=== PATIENT | female | born 1975 | race Caucasian/White ===

== ENCOUNTER 2020-07-15 17:04 | Emergency (ER) | payer BC, SELFPAY ==
[2020-07-15 17:15] VITALS: BP 144/98; PULSE 87; RESP 18; TEMP 36.4; O2SAT 99
--- NOTE | 2020-07-15 17:21 | ED.EAR ---
HPI - Ear Problem General Chief complaint: Ear Stated complaint: ear pain Time Seen by Provider: 07/15/20 17:08 Source: patient Mode of arrival: ambulatory Limitations: no limitations History of Present Illness HPI Narrative: 44 y/o female. Presents to clinic today with acute complaints of RT ear pain and 'aching', worsening over past 1 week. Pt reports to have been seen per PCP, started Debrox gtts, and has had subtherapeutic relief. She notes worsening RT auditory discomforts. Some 'muffled hearing', without severe ear pain or hearing loss. No fever, chills, congestion. No additional acute c/o upon PE. Related Data Home Medications Medication Instructions Recorded Confirmed ergocalciferol (vitamin D2) 1 unit WEEKLY 07/15/20 07/15/20 penicillin V potassium 500 mg DAILY 07/15/20 07/15/20 sumatriptan succinate 100 mg PO DAILY PRN 07/15/20 07/15/20 tamoxifen 20 mg DAILY 07/15/20 07/15/20 venlafaxine 150 mg PO DAILY 07/15/20 07/15/20 Allergies Allergy/AdvReac Type Severity Reaction Status Date / Time ondansetron Allergy Unknown Headache Verified 07/15/20 17:07 fresh fruit and vegatables Allergy Mild Swelling Uncoded 07/30/06 15:17 Review of Systems Review of Systems: Narrative: CONSTITUTIONAL: Denies fever, chills, sweats. EYES: Denies visual changes, redness, discharge. ENT: Denies rhinorrhea, congestion, sore throat. Positive RT otalgia. CARDIOVASCULAR: Denies chest pain, palpitations, edema. RESPIRATORY: Denies dyspnea, wheezing, cough GASTROINTESTINAL: Denies abdominal pain, nausea, vomiting, diarrhea. GENITOURINARY: Denies dysuria, hematuria, abnormal discharge SKIN: Denies rash or itching. MUSCULOSKELETAL: Denies acute back pain, joint pain, or myalgia. NEUROLOGIC: Denies numbness, or focal weakness. PSYCHIATRIC: Denies anxiety or depression. All systems reviewed & are unremarkable except as noted in HPI and below PMFSH Social History Social History Gender identity (if verbalized by the patient): Female Exam Narrative: Exam Narrative: GENERAL: This is a well-nourished, well-developed patient, in no apparent distress. HEAD: normocephalic, atraumatic. EYES: PERRL. Sclera clear/white. Vision is grossly intact. EARS: Hearing grossly intact. Pinna is normal shape and contour. RT ear with mild erythema and swelling of canal, with tenderness to auricle and pinna with palpation and manipulation. Positive RT auditory canal erythema and mild cerumen accumulation. There appears to also be minimal discharge. Clear external auditory LT canal. LT TM pearly smith with good cone of light, no erythema or suppuration, unable to fully visualize RT due to cerumen but appears intact. NOSE: External nose normal with no obvious nasal discharge, nares without redness, no rhinorrhea. THROAT: Mucous membranes moist, posterior pharynx clear. NECK: Neck supple, non-tender without lymphadenopathy, masses or thyromegaly. CARDIOVASCULAR: Regular rate and rhythm without murmurs, gallops, or rubs. RESPIRATORY: Clear to auscultation. Breath sounds equal bilaterally. No wheezes, rales, or rhonchi. GASTROINTESTINAL: Abdomen soft, non-tender, nondistended. Bowel sounds are active. No hepato-splenomegaly, or palpable masses. No guarding. SKIN: warm, intact with no suspicious lesions or rash, good texture and turgor. NEURO: awake, alert, and oriented to person, place and time. There were no obvious focal neurologic abnormalities. Steady gait EXTREMITIES: Normal range of motion. No edema. No calf tenderness. Negative Homans sign bilaterally. BACK: Nontender without deformity or crepitance. No flank tenderness. [place] Coma Scale Eye Opening: Spontaneous 4 [place] Coma Scale Motor: Obeys Commands 6 [place] Coma Scale Verbal: Oriented 5 Course Course Emergency Course: RT auditory canal irrigated with NS. Cerumen fairly soft secondary to pre-debrox regimen per client's self. Manually debr
--- NOTE | 2020-07-15 17:24 | PC.NURSE ---
right ear irrigation with warm water by Luna IRELAND
== END 2020-07-15 17:34 | disposition home or self-care (01) ==
PROVIDERS: Emergency Provider Nurse Practitioner Adult Health; PCP Internal Medicine
DX: H66.91 Otitis media, unspecified, right ear (principal); H61.21 Impacted cerumen, right ear
CPT/HCPCS: 69209; 99213; G0463

== ENCOUNTER 2023-09-12 11:27 | Emergency (ER) | payer BC, SELFPAY ==
--- NOTE | 2023-09-12 11:35 | ED.HA ---
HPI - Headache General Chief Complaint: Headache Stated Complaint: headache/elevated blood pressure Time Seen by Provider: 09/12/23 11:35 Source: patient Mode of arrival: ambulatory Limitations: no limitations History of Present Illness HPI Narrative: Aniya is a 47-year-old female patient presenting to the clinic today with complaints of headache and elevated blood pressure this morning. She reports she has had a migraine headache for 6 days. States that she is taking her sumatriptan and this relieves the headache however she goes to sleep and has a headache upon awakening the next morning. She took her blood pressure today and was 172/110 at home. She is concerned that her blood pressure may be causing her headaches. She denies any dizziness, chest pain, or shortness of breath. States the migraine headache is similar to her class migraines. Rates her pain 8/10 currently. Has not taken her sumatriptan today Related Data Home Medications Medication Instructions Recorded Confirmed ergocalciferol (vitamin D2) 1,250 1 unit WEEKLY 07/15/20 07/15/20 mcg (50,000 unit) capsule penicillin V potassium 250 mg 500 mg DAILY 07/15/20 07/15/20 tablet sumatriptan succinate 100 mg tablet 100 mg PO DAILY PRN Headache 07/15/20 09/12/23 tamoxifen 20 mg tablet 20 mg DAILY 07/15/20 09/12/23 venlafaxine 150 mg 150 mg PO DAILY 07/15/20 09/12/23 capsule,extended release 24 hr aspirin 81 mg capsule 81 mg PO DAILY 09/12/23 09/12/23 Allergies Allergy/AdvReac Type Severity Reaction Status Date / Time ondansetron Allergy Unknown Headache Verified 09/12/23 11:51 fresh fruit and vegatables Allergy Mild Swelling Uncoded 09/12/23 11:51 Review of Systems Review of Systems: Pertinent positives per HPI. Patient denies any fever, chills, rash, visual changes, dizziness, cough, runny nose, sore throat, shortness of breath, chest pain, palpitations, nausea, vomiting, diarrhea, constipation, abdominal pain, or any urinary issues. FOR[facility] Social History Social History Gender identity (if verbalized by the patient): Female Comments At the time of my signature, I reviewed and agree with the nursing past medical, surgical, social, and family history. There is no relevant family history pertinent to the patient complaint. Exam Narrative: General: Well-developed, obese, appears anxious Head: Normocephalic, atraumatic Eyes: Pupils equally round and reactive to light bilaterally, EOM intact, sclera and conjunctive clear, no discharge, lids normal Ears: TMs intact and clear, ear canals clear, no drainage, grossly hearing normal. Nose: Nares patent, no discharge, no inflammation, no sinus tenderness. Mouth: Oropharynx without lesions or masses, good dentition, MMM. Tongue midline, even rise and fall of uvula Neck: Supple, trachea midline, no enlargement of anterior or posterior cervical nodes, no thyroid masses or goiter palpable. Cardio: Regular rate and rhythm, s1 and s2 normal, no murmur appreciated. Resp: Clear to auscultation bilaterally anteriorly and posteriorly, no rhonchi, rales, wheezing or rubs Musculoskeletal: No deformity, non-tender to palpation, grossly normal range of motion, muscle strength strong and equal, peripheral pulse strong, no edema, no cyanosis, normal gait and station Neuro: Alert and oriented x4 with normal speech, no focal deficits, cranial nerves I through XII intact, muscle strength 5 out of 5, sensation intact bilaterally Course Course Emergency Course: Portions of this record may have been created with voice recognition software. Level of Care: Express Care Visit Vital Signs Vital signs: Vital signs reviewed MDM - Headache MDM Narrative Medical decision making narrative: At the time of visit patient is resting comfortably on the exam table. Patient appears to be nontoxic. Blood pressure was initially 141/91 in the clinic. Repeat bl
[2023-09-12 11:43] VITALS: BP 141/91; PULSE 86; RESP 16; TEMP 35.8; O2SAT 98
== END 2023-09-12 12:13 | disposition home or self-care (01) ==
PROVIDERS: Emergency Provider Nurse Practitioner Family; PCP Nurse Practitioner Family
DX: G43.909 Migraine, unspecified, not intractable, without status migrainosus (principal); R03.0 Elevated blood-pressure reading, without diagnosis of hypertension; Z79.82 Long term (current) use of aspirin; Z79.899 Other long term (current) drug therapy
CPT/HCPCS: 99213; G0463

== ENCOUNTER 2025-07-25 02:03 | Day surgery (SDC) | payer BC, SELFPAY ==
--- NOTE | 2025-07-18 10:40 | SUR.PREOP ---
[facility] has started construction of its new state of the art ER which will open Spring 2026. With this, we anticipate parking may be a challenge for some our surgical patients and families. Parking spaces are limited but are available for all Surgical, obstetrics, and ER patients sharing this lot. If you arrive and find you are having a hard time finding a parking space, please note that we understand the challenges, please drive around the hospital and park near Hospital Entrance 1. When you enter this entrance, you can ask a volunteer to direct or take you back to the surgical waiting area to check in. We appreciate everyone?s understanding of these expected challenges while we build for your future. Report to the Outpatient Waiting Room, entrance under the green pavilion located off [address], at time __615AM__ on date _07/25/25__. Planned Procedure Time: __815AM__.? Time changes happen often and if your time is changed the preop area will call you the afternoon before. - You and your visitor will be asked to self-screen and do not enter if you have any COVID symptoms. Please call surgeon if you need to reschedule. - A mask is optional within the hospital at this time. Patients may have clear liquids (water, carbonated beverages, clear teas, apple juice) until 3 hours prior to surgery with a maximum of 20 ounces. - No food from midnight until time of surgery and no smoking, or chewing tobacco (or any form of nicotine). No chewing gum, candy or mints. Take only the following medications with a SIP of water on the morning of surgery: _propranolol, venlafaxine and (ubrelvy if needed)_ DO NOT STOP ANY OF YOUR OTHER PRESCRIPTION MEDICATIONS PRIOR TO SURGERY EXCEPT THE FOLLOWING Hold all vitamins and supplements for 3 days per anesthesiologist-last dose 07/21/25 Medications to hold per physician _Zepbound_ Date to take last dose__Hold dose scheduled for ___ Please no make-up, nail burundian, hairspray, perfume, deodorant, or body powder the day of surgery.? No jewelry (including any body piercings) or valuables the day of surgery, leave them at home.? Please take a shower or bath the night before, or the morning of, surgery with an antibacterial soap.? Wear comfortable, loose fitting clothing.? - Jewelry must be removed prior to entering the operating room.? Rings and piercings that are not removed may be cut off. - The hospital will not accept responsibility for valuables.? - Please leave all valuables, including medications, at home the day of surgery. If you are going home after surgery, a licensed bus driver/monitor must drive you home.? - NO public transportation without another adult if you receive anesthesia. - We recommend that an adult stay with you for 24 hours following discharge. - We also recommend that you do not drive, make important decision, drink alcoholic beverages, or take any drugs that were not prescribed by your health care provider for at least 24 hours after your discharge time. / Follow any additional instructions given to you from your surgeon. Telephone instructions given to __Sheila__and asked if any additional questions and then verbalized understanding. Patient advised to call surgeon office or pre surgery nurse liaison [phone] if any additional questions.
[2025-07-18 10:49] VITALS: BMI 27.3
[2025-07-25] MEDS: ACETAMINOPHEN 500 MG TABLET 1000 MG PO (06:45)
[2025-07-25] MEDS: LACTATED RINGERS 1,000 ML 30 ML IV CONT (07:00)
[2025-07-25 07:04] VITALS: BP 111/71; PULSE 72; RESP 16; TEMP 36.6; O2SAT 100
--- NOTE | 2025-07-25 07:15 | WPDHPUPDATE1 ---
History and Physical Update Update Date/Time: 07/25/25 07:15 History and Physical has been reviewed, including an updated exam of the patient. There are NO changes in the patient's condition. Risks, benefits, and alternatives have been discussed and questions answered. Patient agrees to proceed with procedure.
--- NOTE | 2025-07-25 07:15 | PM.HPGS ---
History of Present Illness History of Present Illness Consent: Risks, benefits, and alternatives have been discussed and questions answered. Patient agrees to proceed with procedure. Chief complaint: menorrhaghia Narrative: Martha Arcos is a 49 year old female who had completed 10 years of tamoxifen. Patient stopped tamoxifen 03/16 and began bleeding in April. She bled for 2 months before seeking care. Bleeding has been spotting alternating with heavy. Patient was given Lysteda. Pelvic ultrasound reveals small fibroids and was otherwise normal. Due to her difficulty cm patient was also given Cytotec prior to surgery and surgery was decided upon for the operating room rather than the office. Risks of infection, bleeding, perforation, and possible pathology are reviewed. Patient voices understanding and agrees to proceed Review of Systems Review of Systems: not repeated day of surgery; patient states no changes in status [facility] Past Medical History Medical History (Updated 07/25/25 @ 07:21 by Martha Carson MD) Elevated cholesterol Breast cancer Polycystic ovarian syndrome Surgical History Surgical History (Updated 07/25/25 @ 07:19 by Martha Carson MD) History of bilateral tubal ligation 2008 with 2nd History of X2 Status post left breast lumpectomy Status post radiation and 10 years of tamoxifen Social History Social History Smoking status: Former smoker Additional smoking assessment comments: occasional in college Alcohol intake: current Alcohol use details: 2/month Living arrangements: with family Gender identity (if verbalized by the patient): Female Spiritual care concerns: No Meds Home Medications and Allergies Home Medications ?Medication ?Instructions ?Recorded ?Confirmed ?Type sumatriptan succinate 100 mg tablet 100 mg PO DAILY PRN Headache 07/15/20 07/18/25 History venlafaxine 150 mg 150 mg PO DAILY 07/15/20 07/25/25 History capsule,extended release 24 hr atorvastatin 20 mg tablet 20 mg PO QPM 07/18/25 07/25/25 History cetirizine 10 mg tablet (24Hour 10 mg PO DAILY PRN allergy 07/18/25 07/25/25 History Allergy) multivitamin (Daily Multi-Vitamin 1 tablet PO DAILY 07/18/25 07/25/25 History tablet) propranolol 40 mg tablet 40 mg PO DAILY 07/18/25 07/25/25 History tirzepatide (weight loss) 15 15 mg subcut WEEKLY 07/18/25 07/25/25 History mg/0.5 mL subcutaneous pen injector (Zepbound) ubrogepant 100 mg tablet (Ubrelvy) 100 mg PO DAILY PRN migraine 07/18/25 07/25/25 History Allergies Allergy/AdvReac Type Severity Reaction Status Date / Time ondansetron Allergy Unknown Headache Verified 07/25/25 06:45 Exam Const: General: healthy appearing and alert Orientation/consciousness: patient oriented x3 Resp: Effort & Inspection: normal respiratory effort : External Female Exam: normal external appearance Speculum Exam - Vagina: normal appearance of the vagina and normal vaginal discharge Speculum Exam - Cervix: Other cervical findings present (Cervix minimally visualized, palpates normal) Bimanual exam- vagina & uterus: uterine size normal and consistency normal Bimanual Exam- Adnexa, other: normal adnexae and No adnexal tenderness Neuro: General: patient oriented x3 Assessment and Plan Assessment and plan (1) Menorrhagia: Code(s): N92.0 - Excessive and frequent menstruation with regular cycle Status: Acute Assessment and Plan: Plan to proceed with D&C hysteroscopy
[2025-07-25 07:19] LABS: BEDSIDEPREGUCG Negative (Negative)
--- NOTE | 2025-07-25 07:58 | WPDANESEPPF ---
Anes - Initial Pre Proc Eval Procedure: Operation Date: 07/25/25 08:15 Proposed Procedures p Hysteroscopy, Dilation and Curettage - Martha Carson MD Date/Time: 07/25/25 07:58 Surgeon: Martha Carson MD Pre Op Diagnosis: menorrhaghia Patient Data Age: 49 Gender: F Height: 1.52 m Weight: 64.9 kg Last Vital Signs Temp 36.6 C 07/25/25 07:04 Pulse 72 07/25/25 07:04 Resp 16 07/25/25 07:04 BP 111/71 07/25/25 07:04 Pulse Ox 100 07/25/25 07:04 O2 Del Method Room Air 07/25/25 07:04 Allergies Allergy/AdvReac Type Severity Reaction Status Date / Time ondansetron Allergy Unknown Headache Verified 07/25/25 06:45 Home Medications ?Medication ?Instructions ?Recorded ?Confirmed ?Type sumatriptan succinate 100 mg tablet 100 mg PO DAILY PRN Headache 07/15/20 07/18/25 History venlafaxine 150 mg 150 mg PO DAILY 07/15/20 07/25/25 History capsule,extended release 24 hr atorvastatin 20 mg tablet 20 mg PO QPM 07/18/25 07/25/25 History cetirizine 10 mg tablet (24Hour 10 mg PO DAILY PRN allergy 07/18/25 07/25/25 History Allergy) multivitamin (Daily Multi-Vitamin 1 tablet PO DAILY 07/18/25 07/25/25 History tablet) propranolol 40 mg tablet 40 mg PO DAILY 07/18/25 07/25/25 History tirzepatide (weight loss) 15 15 mg subcut WEEKLY 07/18/25 07/25/25 History mg/0.5 mL subcutaneous pen injector (Zepbound) ubrogepant 100 mg tablet (Ubrelvy) 100 mg PO DAILY PRN migraine 07/18/25 07/25/25 History Laboratory Tests 07/25/25 07:04 POC Urine HCG, Qual Negative (Negative) Patient hx anesthesia problems: none Family hx anesthesia problems: none Results Review: All pre-operative results and documents have been reviewed as part of the pre-operative evaluation. [facility] Past Medical History Medical History Elevated cholesterol Breast cancer Polycystic ovarian syndrome Surgical History Surgical History History of bilateral tubal ligation 2008 with 2nd History of X2 Status post left breast lumpectomy Status post radiation and 10 years of tamoxifen Social History Social History Smoking status: Former smoker Additional smoking assessment comments: occasional in college Alcohol intake: current Alcohol use details: 2/month Living arrangements: with family Gender identity (if verbalized by the patient): Female Spiritual care concerns: No Anes - Eval Final PreProcedure Day of Procedure 07/25/25 07:58 Patient weight: overweight Heart: regular rate and rhythm Lungs: clear to auscultation Airway: Mallampati scale class II Neurological: alert and oriented Last oral intake: >/= 8 hours ASA classification: III Emergent: no Anesthetic plan: proceed Anesthesia type and monitoring: general GIVS and standard monitoring Results Review: All pre-operative results and documents have been reviewed as part of the pre-operative evaluation. Informed Consent: The patient's anesthetic plan and its attendant risks and benefits were discussed with the patient/family/POA. Questions were solicited and answers provided to the satisfaction of the patient/family/POA.
--- NOTE | 2025-07-25 08:20 | S_PTH ---
PATIENT: Martha Arcos [facility] U#:[id number] AGE/SX: 49/F ROOM: RE07/25/[address]: Martha Carson MD : 1975 BED: DIS: 07/25/2025 SPEC #: [id number] RECD: 07/25/25 10:54 STATUS: DAHLIA REAngelita #: [id number] VERO: 07/25/25 08:[address]: Martha Carson DEPT: [facility] Surgical RECD BY: Chani Ricketts ENTERED: 07/25/25 10:54 SP TYPE: Surgical OTHR DR: Juan Ramon PegueroMD Tissues: A - Endometrial Curettings B - Endocervical Curettings Procedures: Hematoxylin and Eosin Stain Gross and Microscopic Level 4
--- NOTE | 2025-07-25 08:22 | SUR.OPER ---
fluid deficit 120
[2025-07-25] MEDS: KETOROLAC 15 MG/ML VIAL (*BKC) IV PUSH (08:24)
--- NOTE | 2025-07-25 08:28 | W.PM.PROC2 ---
Procedure Note - Detailed Date of Procedure 07/25/25 Pre-op Diagnosis menorrhaghia Post-op Diagnosis Same Procedure Performed D&C hysteroscopy Surgeon Martha Carson MD Anesthesia MAC Findings Large blood clot within the endometrium; secretory appearing endometrium; uterus sounds to7.5cm Description of Procedure The patient was taken to the operating room and placed under anesthesia in the dorsal lithotomy position. She was prepped and draped in usual sterile fashion. [place] speculum was placed in the vagina and the cervix is not visible. The patient was placed in steep Trendelenburg and the speculum and very anterior. The posterior lip of the cervix was barely visible. This is grasped with a tenaculum and pulled and the tenaculum was replaced until the cervix is fully visible. The tenaculum was then placed on the anterior lip. The uterus is sounded to 7.5cm. The diagnostic hysteroscope was placed. There was a very large blood clot within the endometrium. Using the hysteroscope I attempted several times to use the increased flow to remove the blood clot and this was not successful. The small Aveta resection device was therefore opened and placed. The clot is very organized and was removed with difficulty with the small resection device. Once the clot was removed the endometrium appears grossly secretory without lesions. There are no visible fibroids. The endometrium was shaved with the Aveta device. The hysteroscope was then removed. The sharp curette was used to curette the endometrium. The Kavorkian curette is then used to perform an endocervical curetting. The instruments were then removed. Sponge, needle, and instrument counts are correct per the OR staff. The patient was taken to recovery in stable condition. Estimated Blood Loss 5 Drains No Packing No Pathology Yes (Endometrial curettings and shavings; endocervical curettings) Complications No immediate complications Condition Stable Disposition PACU
[2025-07-25 08:32] VITALS: BP 88/42; PULSE 74; RESP 14; O2SAT 100
[2025-07-25 09:00] VITALS: BP 110/74; PULSE 59; RESP 14; O2SAT 100
[2025-07-25 09:25] VITALS: BP 116/69; PULSE 62; RESP 14
== END 2025-07-25 09:35 | disposition home or self-care (01) ==
PROVIDERS: PCP Family Medicine; Visit Provider Obstetrics & Gynecology Gynecology
PROC: 0U5B8ZZ Destruction of Endometrium, Via Natural or Artificial Opening Endoscopic (ICD-10-PCS; CPT 58563; principal; 2025-07-25 08:15)
DX: N92.0 Excessive and frequent menstruation with regular cycle (principal)
CPT/HCPCS: 58558; 88305; A9270; J1885; J2003; J2250; J2704; J3010; J7120